=== PATIENT | male | born 1955 | race Caucasian/White ===

== ENCOUNTER → 2017-01-13 | Outpatient (CLI) | payer OTHER ==
[~2017-01-13] VITALS: Ht 177.8 cm; Wt 117.5 kg
[~2017-01-13] MED LIST: CARVEDILOL12.5 MG PO; IBUPROFEN 600600 M1 PO; NEURONTIN 300300 M1 PO; PARAFON FORTE500 MG PO; PROPRANOLOL 1010 MG PO; TRAMADOL 50 MG50 MG PO; WELLBUTRIN XL150 MG PO
--- NOTE | ~2017-01-13 | HPC ---
[facility] [place] [address] [address] PAIN MANAGEMENT CONSULTATION Name: SHANT EVANS Room #: REG MARILIN Rice#: [id number] Admission: 01/13/17 Attend Phys: Vance Burnett DO Discharge: Date of : 59 Report #: [id number] THIS REPORT FOR: //name// CC: Jer Mas DATE OF SERVICE: 01/13/2017 DATE OF SERVICE: 01/13/2017 CHIEF COMPLAINT: Low back pain, bilateral lower extremity pain, left greater than right. HISTORY OF PRESENT ILLNESS: As you know, the patient is a 61-year-old male, who has had a longstanding history of low back pain, but as of 12/19/2016, he began to experience bilateral lower extremity pain, right greater than left. The pain began in low back, radiated to left initially and now is experiencing some right lower extremity pain. The patient has tried chiropractic manipulation. He has been to 4-5 different sessions. He has been doing stretching exercises at home provided through his chiropractor and has been doing this for nearly 6 weeks. He is taking muscle relaxants and pain medications over the last month, but has noted no improvement in symptoms. His pain continues to escalate. He indicates after his MRI was obtained, he was referred to our clinic to discuss more aggressive interventional treatments. The patient indicates pain is steady, describes the pain as burning, sharp and stabbing, places current pain score 6/10, daily average 7/10, worst the pain has been is 10/10. The patient has been referred to our service by his primary care physician, Dr. Jer Yancey for evaluation for suspected lumbar radiculopathy, unresponsive to more conservative treatment such as chiropractic manipulation, home stretching and exercise programs and medication management. The patient denies any specific injury or trauma that may have led to symptoms. PAST MEDICAL HISTORY: 1. Anemia. 2. Hypertension. 3. Chronic colon problems. 4. Gastroesophageal reflux disease. 5. Emotional distress. 6. Degenerative joint disease. 7. Osteoarthritis. 8. Peptic ulcer disease. PAST SURGICAL HISTORY: 1. Carpal tunnel release, 1979. 2. Knee surgery in 1981. [facility] [address] [place] [address] PAIN MANAGEMENT CONSULTATION Name: SHANT EVANS DRISSLEBRON Room #: REG [facility].#: [id number] Admission: 01/13/17 Attend Phys: Vance Burnett DO Discharge: Date of : 59 Report #: [id number] SOCIAL HISTORY: The patient denies tobacco, IV or illicit drug use. Admits to approximately 2 alcoholic beverages per week. 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 He is working, not receiving workmen's compensation nor is he trying to obtain disability benefits. He is unaccompanied at today's visit. REVIEW OF SYSTEMS: Positive for weight gain, decrease in appetite, fatigue and weakness, frequent and recurrent headaches, cataracts status post surgery, earaches with drainage, chronic sinus problems with rhinitis, sore throat with voice changes, shortness of breath, walking or lying flat, palpitations, frequent and recurrent coughs, asthma, wheezing, loss of appetite, changes in bowel movements, nausea, vomiting, frequent diarrhea, frequent urination, nocturia, incontinence and dribbling to urine, numbness and tingling sensations involving the bilateral lower extremities left greater than right, memory loss with confusion, nervousness, depression, insomnia, heat and cold intolerance, excessive thirst and urination. All other review of systems negative per 12-point review of systems other than those listed in history of present illness. Pain impact score 60/70 indicating severe near complete interference of daily activities secondary to pain. ALLERGIES: CODEINE. CURRENT MEDICATIONS: Propranolol 10 mg once a day, tramadol 50 mg every 6 hours, ibuprofen 600 mg every 8 hours, Parafon Forte 500 mg 3 times a day, carvedilol 12.5 mg twice a day, bupropion XL 150 mg once a day. IMAGING: MRI lumbar spine obtained on 12/25/2016 shows L1-L2 unremarkable, L2-L3 moderate posterior disk protrusion superimposed small inferior right central paracentral disk extrusion and broad-based posterior annular tear. These combined measures 6 mm anterior, posterior, mild overall spinal canal stenosis, more severe neural foraminal narrowing on the right than the left. Facet and ligamentum flavum hypertrophy is mild. L3-L4 moderate posterior disk bulge, superimposed moderate left paracentral disk extrusion, disk material extends inferiorly into the epidural space by 1.1 cm, overall mild central canal stenosis, lateral recess stenosis severe on the left to a lesser degree on the right, significant neural foraminal stenosis is not seen. L4-L5 small posterior disk bulge and annular tear, right foraminal area. [id number] foraminal stenosis noted on the right, mild left. L5-S1, moderate broad-based disk bulge extending into the lateral territories, facet osteoarthritis noted bilaterally. There is mild mass effect upon the exiting L5 nerve roots bilaterally. PHYSICAL EXAMINATION: VITAL SIGNS: Blood pressure 149/112, pulse is 103, respiratory rate 16, unlabored. The patient is 97% on room air, height 5 feet 10 inches tall, weight [facility] [address] [place] [address] PAIN MANAGEMENT CONSULTATION Name: SHANT EVANS Room #: REG MARILIN Rice#: [id number] Admission: 01/13/17 Attend Phys: Vance Burnett DO Discharge: Date of : 59 Report #: [id number] 259 pounds, BMI calculated 37.2. GENERAL: Well-developed, well-nourished, well-hydrated, morbidly obese 61-year-old male appearing his stated age, placing current pain score at around 6/10. HEENT: Normocephalic, atraumatic. Pupils equal, round, reactive to light. Extraocular muscles are intact. Sclerae nonicteric without injection. NEUROLOGIC: Cranial nerves 2-12 grossly intact. Speech is fluent. The patient deemed a fair historian. LUNGS: Clear, no wheeze, rhonchi or rales. CARDIOVASCULAR: Tachycardic. No appreciable gallop or rub. ABDOMEN: Soft, obese, nontender, nondistended, normoactive bowel sounds. EXTREMITIES: Show no clubbing, no cyanosis, no edema. MUSCULOSKELETAL: Lower extremity strength appears equal and symmetrical 5/5. Slight giveaway strength noted on the left with hip flexion causing pain radiating in a dermatomal distribution along what appears to be the L5 dermatome. Seated straight leg raising is mildly positive on the left, negative right. Supine straight leg raising positive on the left, negative right, again in the L5 distribution. Ankle clonus negative. Babinski is negative. The patient remains intact to light touch from L1 through S2 dermatomes. Muscle bulk and tone equal and symmetrical in lower extremities. Gait is antalgic favoring left lower extremity over right. Deep tendon reflexes at patella and Achilles are equal and symmetrical. Stance is slightly forward flexed at lumbar spine. Lumbar provocation testing including extension, rotation, lateral flexion all intensify axial back pain, no radiation of symptoms. ASSESSMENT: 1. Symptomatic lumbar radiculopathy. 2. Displacement of lumbar intervertebral disk with radiculopathy. 3. Lumbosacral spondylosis with radiculopathy. 4. Lumbar degeneration. 5. Intractable pain. PLAN: 1. Based on today's physical exam history, the patient has provided that the description the patient uses in regards to pain as well as the location of symptoms following a dermatomal distribution at the L5 level, likely source of the patient's pain is lumbar radiculopathy. The patient and I discussed at length today treatment options for lumbar radicular symptoms. We discussed physical therapy, stretching exercises, core strengthening. We discussed medication management with neuropathic pain medication, low dose opioid for pain control and consistent nonsteroidal anti-inflammatory. We discussed lumbar epidural injections under fluoroscopic guidance for which the patient was referred to our clinic, spinal cord stimulator therapy and surgical options. After reviewing risks and benefits of all proposed treatment options and given the fact that the patient has failed conservative medical therapy for over a month of time, also failed more conservative treatments with chiropractic [address] [address] PAIN MANAGEMENT CONSULTATION Name: NATHANSHANT Room #: REG MARILIN Rice#: [id number] Admission: 01/13/17 Attend Phys: Vance Burnett DO Discharge: Date of : 59 Report #: [id number] manipulation and traction techniques and home stretching program was provided by his primary care physician and his chiropractor, he requested an epidural injection. The patient was advised that third constitution party payer restrictions require the authorization be obtained before we can move forward with an epidural injection. Authorization could take anywhere from 4-7 working days. We will begin this process immediately and contact the patient once we have achieved this authorization. We will then have the patient return to undergo an epidural injection under fluoroscopic guidance in hopes of improving his lumbar radicular symptoms. 2. The patient was provided a prescription of gabapentin 300 mg dose to begin 1 tab p.o. bedtime for 3 nights, then 2 tabs p.o. at bedtime for 3 nights, then 3 tabs p.o. at bedtime for 3 nights, then 4 tabs p.o. at bedtime. After 3 nights, 4 tabs at night, he will then begin 1 in the morning, continuing 4 at night for 3 days and then increase to 2 tabs in the morning, 4 at night for 3 days. The patient was given 150 tablets of gabapentin 300 mg dose. He is to begin the titration immediately. If he reaches good efficacy during the titration, he is to stabilize at that dose, no improvement in symptoms, no side effects such as somnolence, decreased mental acuity, disorientation and confusion, he will continue the titration as directed. He was given this prescription with no refills. 3. The patient will return to our clinic once we have achieved precertification for him to undergo epidural injection under fluoroscopic guidance in hopes of improving his lumbar radicular symptoms radiating down the left leg and periodically on the right leg in an L5 distribution. 4. We wish to thank Dr. Jer Yancey for the referral of this patient to our clinic. We will keep you apprised of his response to treatment as we address his ongoing pain. Again, we wish to thank you for the opportunity to see him in consultation. <ELECTRONICALLY SIGNED> By: Vance Burnett, 01/15/17 1359 [id number] Vance Burnett DO /nt
[2017-01-13 09:25] VITALS: BP 149/112
== END | disposition home or self-care (01) ==
LOC: PAIN 07:26
DX: M54.16 Radiculopathy, lumbar region (principal); M51.16 Intervertebral disc disorders with radiculopathy, lumbar region; M47.817 Spondylosis without myelopathy or radiculopathy, lumbosacral region; M51.36 Other intervertebral disc degeneration, lumbar region; G89.29 Other chronic pain; Z68.37 Body mass index [BMI] 37.0-37.9, adult; R06.02 Shortness of breath; F32.9 Major depressive disorder, single episode, unspecified; Z98.890 Other specified postprocedural states

== ENCOUNTER → 2017-01-26 | Outpatient (CLI) | payer OTHER ==
[~2017-01-26] VITALS: Ht 177.8 cm; Wt 118.7 kg
--- NOTE | ~2017-01-26 | HPC ---
[facility] [place] [address] [address] [place] [address] PAIN MANAGEMENT CONSULTATION Name: SHANT EVANS Room #: REG MARILIN Rice#: [id number] Admission: 01/26/17 Attend Phys: Vance Burnett DO Discharge: Date of : 59 Report #: [id number] THIS REPORT FOR: //name// CC: Jer Mas DATE OF SERVICE: 01/26/2017 DATE OF SERVICE: 01/26/2017 CHIEF COMPLAINT: Low back pain, bilateral lower extremity pain and paresthesia, left greater than right. HISTORY OF PRESENT ILLNESS: As you know, the patient is a 61-year-old male with longstanding history of low back pain. Apparently, 12/19/2016, he began to experience increasing low back symptoms, but also bilateral lower extremity pain. Pain began in low back radiated to the left initially, then began to radiate to the right lower extremity. He tried chiropractic manipulation. He had been 4-5 sessions, but this did not help improve pain. He was subsequently referred to our service where he was seen in consultation per the request of Dr. Jer Yancey 01/13/2017. At that visit, the patient was provided the diagnoses of lumbar radiculopathy, displacement of lumbar intervertebral disk with radicular symptoms, lumbosacral spondylosis with radiculopathy, degeneration of lumbar spine leading to chronic intractable pain. At that visit, we discussed multiple treatment options for pain control. The patient chose to begin with an epidural injection. We have received precertification by the patient's third democrat payer and he is now returning today in followup visit to undergo the epidural injection requested. He indicates today, pain level 6/10. States the pain is steady, burning, sharp and stabbing in sensation, exacerbated with sitting and lifting, improves with repositioning. He denies new injury, new trauma or changes in medical history since our last visit. ALLERGIES: CODEINE. CURRENT MEDICATIONS: Propranolol, tramadol, ibuprofen, Parafon Forte, carvedilol, bupropion XL. SOCIAL HISTORY: The patient denies tobacco, IV or illicit drug use. Admits to approximately 2 alcoholic beverages per week. 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 He is working, not receiving workmen's compensation, unaccompanied today. IMAGING: No new imaging available. PHYSICAL EXAMINATION: [address] [address] PAIN MANAGEMENT CONSULTATION Name: SHANT EVANS Room #: REG MARILIN Rice#: [id number] Admission: 01/26/17 Attend Phys: Vance Burnett DO Discharge: Date of : 59 Report #: [id number] VITAL SIGNS: Blood pressure 137/91, pulse 78, respiratory rate 16, unlabored. The patient is 96% on room air. Height 5 feet 10 inches tall, weight 261.6 pounds, BMI calculated 37.5. GENERAL: Well-developed, well-nourished, well-hydrated exogenously obese 61-year-old male appearing stated age, placing current pain score at 6/10. HEENT: Normocephalic, atraumatic. Pupils equal, round, reactive to light. Extraocular muscles are intact. EXTREMITIES: Show no clubbing, no cyanosis, no edema. MUSCULOSKELETAL: Seated straight leg raising negative. Supine straight leg raising positive on the left. Johan test negative. Modified Gaenslen's positive for axial low back pain. The distribution of pain appears to be along dermatomal distribution L5 in left lower extremity. ASSESSMENT: 1. Symptomatic lumbar radiculopathy. 2. Displacement of lumbar intervertebral disk with radiculopathy. 3. Lumbosacral spondylosis with radiculopathy. 4. Lumbar degeneration. 5. Chronic intractable pain. PLAN: 1. The patient has returned today in followup visit having received precertification to undergo epidural injection under fluoroscopic guidance. The patient has been advised of the risks and the benefits of this procedure. These risks include but are not necessarily limited to bleeding, bruising, infection, worsening pain, no relief of pain, also risk of temporary or permanent muscle weakness, temporary or permanent nerve damage, possible paralysis and . The patient states understood and wished to proceed. 2. The patient was provided a work release to be released from work duties today 01/26/2017 to recover from today's procedure. 3. The patient to return to our clinic in 3 weeks. At that time, review the efficacy of this epidural injection and determine if the next in the series of epidural injections would be necessary. PROCEDURE NOTE DESCRIPTION OF PROCEDURE: L5-S1 left paramedian epidural steroid injection under fluoroscopic guidance. This is the first procedure of the first series that the patient is undergoing. After obtaining written consent, the patient was taken back to the fluoroscopy suite, placed in a prone position with pillow under the abdomen to decrease lumbar lordosis. The skin overlying the lumbosacral area was then prepped and draped in aseptic fashion. The L5-S1 vertebral interspace was then identified by AP fluoroscopy. The skin and subcutaneous tissue overlying the target site [address] [address] PAIN MANAGEMENT CONSULTATION Name: SHANT EVANS Room #: REG MARILIN Rice#: [id number] Admission: 01/26/17 Attend Phys: Vance Burnett DO Discharge: Date of : 59 Report #: [id number] of injection was anesthetized with 3 mL 1% lidocaine. A #20 gauge 3-1/2 inches Tuohy needle was then advanced under fluoroscopic guidance towards the epidural space using a left paramedian approach. The epidural space was identified using loss of resistance to air technique. After negative aspiration for heme or cerebrospinal fluid, a total of 1 mL of Omnipaque was injected. A lumbar epidurogram was confirmed using both AP and lateral fluoroscopy. After negative aspiration for heme or cerebrospinal fluid, 5 mL of a solution containing 2 mL 40 mg per mL, 80 mL total triamcinolone, 3 mL of lidocaine 1% was injected in increments. Contrast spread was noted posterior epidural space. The needle was then retracted approximately half way and needle tract flushed with 1 mL of 1% lidocaine. Needle was then removed. There were no apparent sensory or motor deficits in the lower extremity following the procedure. A sterile bandage was placed over the injection site. The heart rate, pulse, oximetry and blood pressure were continuously monitored after the procedure. There were no apparent complications. The patient tolerated the procedure well and was carefully escorted to the recovery room in stable condition. There were no apparent complications. After meeting discharge criteria, the patient was then discharged home. <ELECTRONICALLY SIGNED> By: Vance Burnett DO 01/27/17 0833 [id number] Vance Burnett DO /nt
[2017-01-26 13:31] VITALS: BP 137/91
== END | disposition home or self-care (01) ==
LOC: PAIN 07:08
DX: M54.16 Radiculopathy, lumbar region (principal); M51.16 Intervertebral disc disorders with radiculopathy, lumbar region; M47.27 Other spondylosis with radiculopathy, lumbosacral region; G89.29 Other chronic pain; M51.36 Other intervertebral disc degeneration, lumbar region; Z88.8 Allergy status to other drugs, medicaments and biological substances; Z79.899 Other long term (current) drug therapy